=== PATIENT | female | born 1970 | race Hispanic/Latino ===

== ENCOUNTER 2019-07-14 03:19 | Emergency (ER) | payer SELFPAY ==
[2019-07-14] MEDS ORDERED: IBUPROFEN 600 MG TAB PO STA (03:23)
[2019-07-14 04:20] LABS: INFLUENZAE A&B ANTIGEN (RAPID) NEGATIVE (NEGATIVE); STREPTOCOCCUS GRP A ANTIGEN NEGATIVE (NEGATIVE)
--- NOTE | 2019-07-14 06:14 | Diagnostic Imaging Report ---
EXAMINATION: CHEST SINGLE (PORTABLE) INDICATION: Fever, myalgias COMPARISON: None FINDINGS: TUBES and LINES: None. LUNGS: Normal lung volumes. Mild smooth central bronchial wall thickening. No consolidations. PLEURA: No pleural effusion or pneumothorax. HEART AND MEDIASTINUM: The cardiomediastinal silhouette is unremarkable. BONES AND SOFT TISSUES: No acute osseous lesion. Soft tissues are unremarkable. UPPER ABDOMEN: No free air under the diaphragm. IMPRESSION: Subtle findings of bronchitis. Signed by: Benjamin Calabrese DO on 07/14/2019 6:11 AM
== END 2019-07-14 04:46 | disposition home or self-care (01) ==
LOC: ER 03:19
DX: R50.9 Fever, unspecified (principal); J00 Acute nasopharyngitis [common cold]
CPT/HCPCS: 71045; 83518; 87070; 87400; 99283